=== PATIENT | male | born 1980 | race Caucasian/White ===

== ENCOUNTER 2020-05-16 13:38 | Emergency (ER) | payer OTHER, SELFPAY ==
[2020-05-16 13:44] VITALS: BP 153/87; PULSE 98; RESP 16; TEMP 37.2; O2SAT 99; BMI 41.2
--- NOTE | 2020-05-16 13:46 | ED.BACK ---
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 He slipped, falling onto rocks. He sustained severe right lower back pain. He did not try to get up. He is transported here by EMS. He denies incontinence. He denies numbness or weakness to the low back. He is on full says find precautions including his C-spine. He has no head or neck injury. There is no LOC. He has no bleeding at any injury sites, he denies chronic illness, he is on no prescription medications. 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 Related Data Allergies Allergy/AdvReac Type Severity Reaction Status Date / Time No Known Drug Allergies Allergy Verified 05/16/20 13:47 Review of Systems Review of Systems ROS Unobtainable: All systems reviewed & are unremarkable except as noted in HPI and below Constitutional Constitutional: Denies chills, Denies fever(s) and Denies weakness Eyes Eyes: Denies change in vision ENT Comments: No ENT complaints, no head pain. No neck pain. Cardiovascular Cardiovascular: Denies chest pain, Denies irregular heart rhythm, Denies lightheadedness and Denies dyspnea Respiratory Respiratory: Denies cough, Denies dyspnea and Denies wheezing Gastrointestinal Gastrointestinal: Denies abdominal pain, Denies diarrhea, Denies nausea and Denies vomiting Genitourinary Comments: No incontinence Musculoskeletal Musculoskeletal: Denies numbness Comments: Lumbar pain. No other injury. Integumentary/Breasts Comments: No rash or abrasion. Neurologic Neurologic: Denies numbness and Denies weakness Allergic/Immunologic Allergic/Immunologic: Denies wheezing Patient History Medical History (Updated 05/16/20 @ 20:09 by Aleksandar Bridges MD) No active medical problems (Acute) Surgical History (Updated 05/16/20 @ 20:09 by Aleksandar Bridges MD) No history of previous surgery (Acute) Social History Smoking Status: Never smoker Exam Initial Vital Signs Initial Vital Signs: Vital Signs Temperature 98.9 F 05/16/20 13:44 Pulse Rate 98 H 05/16/20 13:44 Respiratory Rate 16 05/16/20 13:44 Blood Pressure 153/87 H 05/16/20 13:44 Pulse Oximetry 99 05/16/20 13:44 Const General: cooperative and well developed Nutritional Appearance: well nourished [facility] Head: normocephalic and atraumatic Eyes Pupils: PERRL EOM: EOM intact bilaterally Neck Neck: full ROM, supple and No tender Chest Chest: normal inspection of the chest Resp Auscultation: clear to auscultation bilaterally Cardio Rate: regular rate Rhythm: regular rhythm Heart Sounds: S1 normal, S2 normal, no click, no gallops, no murmurs and no rubs Pulses: normal peripheral pulses GI Other: Obese. Nontender. Back/Spine/Pelvis Other: No thoracic tenderness or visible abnormality. Tenderness in the mid lumbar spine without palpable deformity. No contusions or abrasions. The no SI or sacral tenderness. Skin General: no rashes or lesions noted, No jaundice and No petechiae Neuro General: patient alert, patient oriented x3, gait normal and no focal motor deficits Speech: speech normal Extrem General: full ROM, no pedal edema and no calf tenderness Psych Mental Status: mental status grossly normal Course Course Course Narrative: I cleared the patient from the spine immobilizer after triage into the ER. He is morbidly obese. He went over for CT, but asymptomatic improve without medication or intervention after return. The CT shows DJD, no fracture. He is discharged without restrictions or analgesics. Orders Ordered: ED Orders 05/16/20 14:02 CT lumbar spine wo con Stat Discontinued Medications Morphine Sulfate (Morphine) 4 mg IM NOW ONE Stop: 05/16/20 13:46 Last Admin: 05/16/20 13:52 Dose: Not Given Documented by: RSTONE Vital Signs Vital signs: Vital Signs - 8 hr 05/16/20 13:44 05/16/20 15:28 Temperature 98.9 F Pulse Rate 98 H 79 Respiratory Rate 16 18 Blood Pressure 153/87 H 133/94 H Pulse Oximetry 99 99 MDM - Back Pain/Injury Imaging Data Lumbar spine CT: Radiologist's Impression: 9 Aleksandar Bridges MD Find Patient Imaging - Charles Nguyen [address] 1980 ACTIVITY DATE EXAM STATUS AUTHOR 05/16/20 14:[address] [address] [address] Scan Report Signed Patient: Sathish Nguyen#: [id number] : 1980Acct:[id number] Age/Sex: 39 / MDate of Service: 05/16/20 Loc: ED Accession Number: [id number] Procedure: CT lumbar spine wo con Ordering Provider: Aleksandar Bridges MD PROCEDURE: CT LUMBAR SPINE WO CON INDICATIONS: Fall. Lumbar trauma. TECHNIQUE: Noncontrast 3 mm thick sections acquired from the T12 level to the sacrum. Sagittal and coronal reformats were constructed. For radiation dose reduction, the following was used: automated exposure control. COMPARISON: None. FINDINGS: Image quality: Excellent. Bones: No acute vertebral body compression fractures. No suspicious lytic or blastic bony lesions. Central spinal caliber is of normal overall caliber. No pars defects. Minimal levoconvex scoliotic curvature is seen. T12-L1: Normal. L1-L2: Normal. L2-L3: Normal. L3-L4: The disc height is well preserved. Mild disc bulge is seen. Mild bilateral neural foraminal narrowing is seen. Mild central canal narrowing is seen. L4-L5: The disc height is well preserved. Mild to moderate disc bulge is seen, with a mild central disc protrusion. There is moderate bilateral neural foraminal narrowing seen. Moderate central canal narrowing is seen. L5-S1: The disc height is well preserved. Moderate disc bulge is seen. Mild to moderate bilateral neural foraminal narrowing is seen. No significant central canal narrowing is seen. Soft tissues: No retroperitoneal masses or hematomas. Visualized aorta is normal in caliber. IMPRESSION: No acute abnormality is seen. Premature lower lumbar spine degenerative changes are seen, which are most prominent at the L4-5 level. If it would be helpful for clinical management decision making, please consider a dedicated lumbar MRI for further evaluation (assuming that there is no contraindication). Dictated by: Tyshawn Nguyen M.D. on 05/16/2020 at 13:23 Approved by: Tyshawn Nguyen M.D. on 05/16/2020 at 13:25 Discharge Plan Departure Patient Disposition: Home Clinical Impression: Localized osteoarthritis of lumbar spine, Elevated blood pressure reading Lumbar contusion Qualifiers: Encounter type: initial encounter Qualified Code(s): S30.0XXA - Contusion of lower back and pelvis, initial encounter Discharge Date/Time: 05/16/20 15:29 Instructions: DI for Low Back Pain, DI for Osteoarthritis Activity Restrictions/Additional Instructions: Ibuprofen 600 mg every 6 hours as needed for pain. Apply ice packs to your low back frequently for the next 2 days. Walk instructions much as possible. Recheck with your doctor when she returns home. Have your doctor re-evaluate her back, also have your doctor recheck your blood pressure you are up a little. Return here as needed.
[2020-05-16] MEDS: MORPHINE 4 MG/ML INJ IM (13:52)
--- NOTE | 2020-05-16 14:02 | DI.CT.S_ITS ---
PROCEDURE: CT LUMBAR SPINE WO CON INDICATIONS: Fall. Lumbar trauma. TECHNIQUE: Noncontrast 3 mm thick sections acquired from the T12 level to the sacrum. Sagittal and coronal reformats were constructed. For radiation dose reduction, the following was used: automated exposure control. COMPARISON: None. FINDINGS: Image quality: Excellent. Bones: No acute vertebral body compression fractures. No suspicious lytic or blastic bony lesions. Central spinal caliber is of normal overall caliber. No pars defects. Minimal levoconvex scoliotic curvature is seen. T12-L1: Normal. L1-L2: Normal. L2-L3: Normal. L3-L4: The disc height is well preserved. Mild disc bulge is seen. Mild bilateral neural foraminal narrowing is seen. Mild central canal narrowing is seen. L4-L5: The disc height is well preserved. Mild to moderate disc bulge is seen, with a mild central disc protrusion. There is moderate bilateral neural foraminal narrowing seen. Moderate central canal narrowing is seen. L5-S1: The disc height is well preserved. Moderate disc bulge is seen. Mild to moderate bilateral neural foraminal narrowing is seen. No significant central canal narrowing is seen. Soft tissues: No retroperitoneal masses or hematomas. Visualized aorta is normal in caliber. IMPRESSION: No acute abnormality is seen. Premature lower lumbar spine degenerative changes are seen, which are most prominent at the L4-5 level. If it would be helpful for clinical management decision making, please consider a dedicated lumbar MRI for further evaluation (assuming that there is no contraindication). Dictated by: Tyshawn Nguyen M.D. on 05/16/2020 at 13:23 Approved by: Tyshawn Nguyen M.D. on 05/16/2020 at 13:25
--- NOTE | 2020-05-16 14:36 | PC.NURSE ---
Backboard and c-collar removed by Dr. Bridges after exam upon pty arrival to ER.
[2020-05-16 15:28] VITALS: BP 133/94; PULSE 79; RESP 18; O2SAT 99
== END 2020-05-16 15:29 | disposition home or self-care (01) ==
PROVIDERS: Emergency Provider Emergency Medicine
DX: S30.0XXA Contusion of lower back and pelvis, initial encounter (principal); W01.0XXA Fall on same level from slipping, tripping and stumbling without subsequent striking against object, initial encounter; Y99.0 Civilian activity done for income or pay
CPT/HCPCS: 72131; 99283; J2270